=== PATIENT | male | born 2000 ===

== ENCOUNTER 2021-09-22 00:05 | Emergency (ER) | payer MEDICAID ==
[~2021-09-22] VITALS: Ht 185.4 cm; Wt 73.5 kg
[2021-09-22 02:14] LABS: Urine Bacteria FEW /hpf (None Seen); Urine Blood 3+ /uL (Negative); Urine Mucus FEW (None Seen); Urine Specific Gravity 1.013 (1.001-1.035); Urine WBC 22 /hpf (0 - 3)
[2021-09-22] MEDS ORDERED: IOHEXOL 300 MG/ML 100ML BOTTLE IJ ONE (02:57)
[2021-09-22 04:18] LABS: Basophils # (auto) 0 10 ^3/uL (0-0.2); Basophils % (auto) 0.8 % (0.0-2.0); Eosinophils # (auto) 0 10 ^3/uL (0-0.8); Eosinophils % (auto) 0.8 % (0.0-7.0); Hematocrit 41.5 % (41.0-53.0); Hemoglobin 14.1 g/dL (13.5-17.5); Lymphocytes # (auto) 1.4 10 ^3/uL (0.4-5.4); Lymphocytes % (auto) 25.4 % (10.0-50.0); Mean Corpuscular Hemoglobin 29.6 pg (28.0-32.0); Monocytes # (auto) 0.5 10 ^3/uL (0-1.3); Monocytes % (auto) 8.7 % (0.0-12.0); Neutrophils # (auto) 3.6 10 ^3/uL (1.6-8.6); Neutrophils % (auto) 64.3 % (37.0-80.0); Nucleated Red Blood Cells % 0.2 %; Red Blood Cells 4.77 10^6/uL (4.5-5.90); Red Cell Distribution Width 13.2 % (11.8-14.3); White Blood Cell 5.6 10^3/uL (4.4-10.8)
[2021-09-22 04:33] LABS: Albumin 4.2 g/dL (3.4-5.0); BUN/Creatinine Ratio 16.5; Calcium 9.1 mg/dL (8.5-10.1); Potassium 3.7 mmol/L (3.5-5.1)
[2021-09-22 04:36] LABS: Bilirubin, Total 1.4 mg/dL (0.2-1.0); Total Protein 7.5 g/dL (6.4-8.2)
[2021-09-22] MEDS ORDERED: cefTRIAXone 1GM/50ML D5W 50 ML IV ONE (13:15)
[2021-09-22] MEDS ORDERED: NAP500T PO (13:42)
[2021-09-22] MEDS ORDERED: CIPR-173 PO (13:42)
[2021-09-22 13:51] VITALS: BP 110/58
== END 2021-09-22 14:02 | disposition home or self-care (01) ==
LOC: ER 00:05
DX: S29.9XXA Unspecified injury of thorax, initial encounter (principal); S39.91XA Unspecified injury of abdomen, initial encounter; N39.0 Urinary tract infection, site not specified; R74.8 Abnormal levels of other serum enzymes; Z95.1 Presence of aortocoronary bypass graft; Z95.0 Presence of cardiac pacemaker; Z79.899 Other long term (current) drug therapy; V49.49XA Driver injured in collision with other motor vehicles in traffic accident, initial encounter; Y93.89 Activity, other specified; Y92.410 Unspecified street and highway as the place of occurrence of the external cause; Y99.8 Other external cause status
CPT/HCPCS: 36415; 71260; 74177; 80053; 81001; 82550; 83880; 84484; 85025; 93005; 96365; 99285; J0696; Q9967